=== PATIENT | female | born 1995 | race Caucasian/White ===

== ENCOUNTER 2018-06-25 17:05 | Day surgery (SDC) | payer SELFPAY ==
[2018-06-25 17:43] LABS: BILIRUBIN,URINE NEGATIVE (NEGATIVE); GLUCOSE, URINE (UA) NEGATIVE (NEGATIVE); KETONES,URINE (UA) NEGATIVE (NEGATIVE); LEUKOCYTE ESTERASE, URINE NEGATIVE (NEGATIVE); NITRITE,URINE NEGATIVE (NEGATIVE); OCCULT BLOOD,URINE SMALL (NEGATIVE); PROTEIN,URINE TRACE mg/dL (NEGATIVE); UROBILINOGEN,URINE 0.2 (NORMAL) E.U./dL (NORMAL)
[2018-06-25 17:44] LABS: CLARITY,URINE CLEAR (CLEAR)
[2018-06-25 17:45] LABS: HCG UR QUAL NEGATIVE
[2018-06-25 17:55] LABS: BACTERIA,URINE Rare /HPF (None Seen); RBC,URINE 0-5 /HPF (0-5); SQUAMOUS EPITHELIAL CELL,UR MOD Squamous (<= Few)
--- NOTE | 2018-06-25 17:57 | ED Physician Documentation ---
PD HPI ABD PAIN - Stated complaint Stated Complaint: AB PX/FEVER - Chief complaint Chief Complaint: Abd Pain - History obtained from History obtained from: Patient - History of Present Illness Timing - onset: Other (4 days progressive pain from the epigastrium moving to the RLQ. Hurts to move. Decreased PO intake. Has been nauseous. Nexplanon in place.) Review of Systems Ten Systems: 10 systems reviewed and negative Constitutional: reports: Chills, Fatigue GI: reports: Abdominal Pain, Nausea. denies: Vomiting, Constipation, Diarrhea : denies: Dysuria, Frequency PD PAST MEDICAL HISTORY - Past Medical History Past Medical History: No Cardiovascular: None Respiratory: None Neuro: None Endocrine/Autoimmune: None GI: None [employer]IENT SALES AND SERVICE OFFICER: None : None HEENT: None Psych: None Musculoskeletal: None Derm: None - Past Surgical History Past Surgical History: No - Present Medications Home Medications: Ambulatory Orders Medication Instructions Recorded Confirmed Etonogestrel [Nexplanon] 68 mg SQ DAILY 06/25/18 06/25/18 - Allergies Allergies/Adverse Reactions: Allergies Allergy/AdvReac Type Severity Reaction Status Date / Time codeine Allergy Intermediate Hives Verified 06/25/18 17:14 Penicillins Allergy Intermediate Hives Verified 06/25/18 17:14 Sulfa (Sulfonamide Allergy Intermediate Hives Verified 06/25/18 17:14 Antibiotics) tramadol Allergy Intermediate Hives Verified 06/25/18 17:14 acetaminophen [From Vicodin] AdvReac Intermediate Hives Verified 06/25/18 17:14 hydrocodone bitartrate * AdvReac Intermediate Hives Verified 06/25/18 17:14 [From Vicodin] - Social History Does the pt smoke?: No Smoking Status: Never smoker Does the pt drink ETOH?: Yes Does the pt have substance abuse?: No - Family History Family history: reports: Non contributory - Immunizations Immunizations are current?: Yes - POLST Patient has POLST: No PD ED PE NORMAL - Vitals Vital signs reviewed: Yes - General General: Alert and oriented X 3, No acute distress - HEENT HEENT: PERRL, EOMI - Neck Neck: Supple, no meningeal sign, No bony TTP - Cardiac Cardiac: RRR, No murmur - Abdomen Abdomen: Normal bowel sounds, Soft, Other (TTP RLQ) - Back Back: No CVA TTP, No spinal TTP - Derm Derm: Normal color, Warm and dry - Extremities Extremities: No edema, No calf tenderness / cord - Neuro Neuro: Alert and oriented X 3, Normal speech Results - Vitals Vitals: Vital Signs - 24 hr 06/25/18 06/25/18 17:12 19:14 Temperature 37.4 C 37.5 C Heart Rate 125 H 99 Respiratory 18 18 Rate Blood Pressure 104/61 110/63 O2 Saturation 99 100 Oxygen O2 Source Room air - Labs Labs: Laboratory Tests 06/25/18 06/25/18 06/25/18 17:35 18:00 18:00 WBC 10.5 RBC 4.94 Hgb 14.4 Hct 42.6 MCV 86.4 MCH 29.2 MCHC 33.8 RDW 13.6 Plt Count 267 MPV 8.7 Neut # (Auto) 7.9 H Lymph # (Auto) 1.5 Lynn # (Auto) 0.9 Eos # (Auto) 0.1 Baso # (Auto) 0.0 Absolute Nucleated RBC 0.00 Nucleated RBC % 0.0 Sodium 136 Potassium 3.2 L Chloride 98 L Carbon Dioxide 26 Anion Gap 12.0 BUN 11 Creatinine 0.7 Estimated GFR (MDRD) 106 Glucose 103 H Calcium 9.0 Total Bilirubin 0.8 AST 19 ALT 16 Alkaline Phosphatase 64 Total Protein 8.0 Albumin 4.4 Globulin 3.6 Albumin/Globulin Ratio 1.2 Lipase 23 Urine Color YELLOW Urine Clarity CLEAR Urine pH 8.0 H Ur Specific Mach[place] 1.020 Urine Protein TRACE Urine Glucose (UA) NEGATIVE Urine Ketones NEGATIVE Urine Occult Blood SMALL H Urine Nitrite NEGATIVE Urine Bilirubin NEGATIVE Urine Urobilinogen 0.2 (NORMAL) Ur Leukocyte Esterase NEGATIVE Urine RBC 0-5 Urine WBC 0-3 Ur Squamous Epith Cells MOD Squamous H Urine Bacteria Rare Ur Microscopic Review INDICATED Urine Culture Comments NOT INDICATED Urine HCG, Qual NEGATIVE - Rads (name of study) CTAP Radiology: EMP read contemporaneously (Acute appendicitis with potential perforation and pelvic free fluid) PD MEDICAL DECISION MAKING - ED course ED course: 23-year-old woman presents having pretty much read the book on appendicitis confirmed by CT. Spoke with Dr. Rizvi who will take her to the OR. We spoke around 8:15 PM. Allergies reviewed and she was administered Cipro and Flagyl IV. Departure - Departure Disposition: ED Transfer to [facility] Clinical Impression: Appendicitis Qualifiers: Appendicitis type: acute appendicitis Acute appendicitis type: with localized peritonitis Appendicitis gangrene presence: without gangrene Appendicitis perforation presence: with perforation Appendicitis abscess presence: without abscess Qualified Code(s): K35.32 - Acute appendicitis with perforation and localized peritonitis, without abscess Condition: Serious Forms: Activity restrictions
[2018-06-25] MEDS ORDERED: ONDANSETRON 4 MG/2 ML VIAL IVP STA (17:58)
[2018-06-25] MEDS ORDERED: SODIUM CHLORIDE 0.9% 1,000 ML IV ONE (17:58)
[2018-06-25] MEDS ORDERED: IOVERSOL 320 100 ML VIAL IVP ONE ×2 (18:07→20:11)
[2018-06-25] MEDS ORDERED: fentaNYL 100 MCG/2 ML VIAL IVP STA ×2 (18:09→19:56)
[2018-06-25 18:12] LABS: BASOPHILS % (AUTO) 0.4 %; EOSINOPHILS # (AUTO) 0.1 10^3/uL (0.0-0.7); EOSINOPHILS % (AUTO) 0.9 %; HGB - HEMOGLOBIN 14.4 g/dL (12.0-16.0); LYMPHOCYTES # (AUTO) 1.5 10^3/uL (1.5-3.5); LYMPHOCYTES % (AUTO) 14.5 %; MEAN CORPUSCULAR HEMOGLOBIN 29.2 pg (27.0-31.0); MEAN CORPUSCULAR HGB CONC 33.8 g/dL (32.0-36.0); MEAN CORPUSCULAR VOLUME 86.4 fL (81.0-99.0); MEAN PLATELET VOLUME 8.7 fL (7.9-10.8); MONOCYTES # (AUTO) 0.9 10^3/uL (0.0-1.0); MONOCYTES % (AUTO) 8.8 %; NEUTROPHILS # (AUTO) 7.9 10^3/uL (1.5-6.6); NEUTROPHILS % (AUTO) 75.4 %; PLT - PLATELET COUNT 267 10^3/uL (130-450); RED BLOOD COUNT 4.94 10^6/uL (4.20-5.40); RED CELL DISTRIBUTION WIDTH 13.6 % (12.0-15.0); WHITE BLOOD COUNT 10.5 x10^3/uL (4.8-10.8)
[2018-06-25 18:25] LABS: ALBUMIN 4.4 g/dL (3.2-5.5); ALBUMIN/GLOBULIN RATIO 1.2 (1.0-2.2); BILIRUBIN,TOTAL 0.8 mg/dL (0.2-1.0); CREATININE 0.7 mg/dL (0.4-1.0)
--- NOTE | 2018-06-25 20:07 | CT Report ---
Reason: IV only, RLQ pain Procedure Date: 06/25/2018 Accession Number: [id number] / [id number] Procedure: CT - Abdomen/Pelvis W CPT Code: FULL RESULT: EXAM: CT ABDOMEN AND PELVIS EXAM DATE: 06/25/2018 07:46 PM. CLINICAL HISTORY: IV only, RLQ pain. COMPARISONS: None. TECHNIQUE: Routine helical CT imaging was performed through the abdomen and pelvis. IV contrast: CE. Enteric contrast: No. Reconstructions: Coronal and sagittal. In accordance with CT protocol optimization, one or more of the following dose reduction techniques were utilized for this exam: automated exposure control, adjustment of mA and/or KV based on patient size, or use of iterative reconstructive technique. FINDINGS: Lung Bases: Unremarkable. Liver: Normal. No masses. Gallbladder/Bile Ducts: Unremarkable. Spleen: Normal. Pancreas: Normal. Adrenal Glands: Normal. Kidneys: Normal. No masses or hydronephrosis. Peritoneal Cavity/Bowel: Stomach and small bowel demonstrate no acute abnormalities. No acute colonic abnormalities. The appendix is dilated and thick-walled. It measures up to 1.3 cm in diameter. It is best seen on coronal imaging. The proximal appendix is poorly defined. There is periappendiceal fat stranding and fluid. There is small to moderate amount of free fluid within the right pelvis. There are subcentimeter mesenteric lymph nodes. Pelvic Organs: Uterus and adnexa demonstrate no significant abnormalities. The urinary bladder is decompressed. Vasculature: No acute vascular abnormalities are seen. Bones: No significant abnormality. Other: None. IMPRESSION: The appendix is dilated up to 1.3 cm. It is fluid-filled and demonstrates mural irregularity. The proximal appendix is poorly defined. There is periappendiceal fat stranding which extends from the right lower quadrant through the right pelvis. There is small to moderate volume fluid within the pelvis. Findings are consistent with acute appendicitis, with possible appendiceal perforation. There is no definite evidence of drainable periappendiceal abscess. RADIA
[2018-06-25] MEDS ORDERED: metroNIDAZOLE 500 MG/100 ML 500 MG/100 ML BAG IV ONE (20:18)
[2018-06-25] MEDS ORDERED: CIPROFLOXACIN 400 MG/200 ML 200 ML IV ONE (20:18)
--- NOTE | 2018-06-25 20:53 | ANESTHESIA ---
Pre-Anesthesia VS, & Labs - Diagnosis acute appendicitis - Procedure Lap appy Vital Signs: Temp Pulse Resp BP Pulse Ox 37.5 C 99 18 110/63 100 06/25/18 19:14 06/25/18 19:14 06/25/18 19:14 06/25/18 19:14 06/25/18 19:14 Height 5 ft 6 in Weight (kg) 72.575 kg Body Mass Index 25.8 - NPO Last Food Intake: 1600 - Is Patient ?: No - Lab Results Current Lab Results: Laboratory Tests 06/25/18 18:00: Sodium 136, Potassium 3.2 L, Chloride 98 L, Carbon Dioxide 26, Anion Gap 12.0, BUN 11, Creatinine 0.7, Estimated GFR (MDRD) 106, Glucose 103 H, Calcium 9.0, Total Bilirubin 0.8, AST 19, ALT 16, Alkaline Phosphatase 64, Total Protein 8.0, Albumin 4.4, Globulin 3.6, Albumin/Globulin Ratio 1.2, Lipase 23 06/25/18 18:00: WBC 10.5, RBC 4.94, Hgb 14.4, Hct 42.6, MCV 86.4, MCH 29.2, MCHC 33.8, RDW 13.6, Plt Count 267, MPV 8.7, Neut # (Auto) 7.9 H, Lymph # (Auto) 1.5, [place] # (Auto) 0.9, Eos # (Auto) 0.1, Baso # (Auto) 0.0, Absolute Nucleated RBC 0.00, Nucleated RBC % 0.0 Fish Bones: 06/25/18 18:00 06/25/18 18:00 Home Medications and Allergies Home Medications: Ambulatory Orders Etonogestrel [Nexplanon] 68 mg SQ DAILY 06/25/18 Active Medications Ciprofloxacin (Cipro 400 Mg/200 Ml) 200 mls @ 200 mls/hr IV ONCE ONE Stop: 06/25/18 21:17 Last Admin: 06/25/18 20:45 Dose: 200 mls/hr Metronidazole (Flagyl 500 Mg/100 Ml) 500 mg in 100 mls @ 100 mls/hr IV ONCE ONE Stop: 06/25/18 21:17 Etonogestrel [Nexplanon] 68 mg SQ DAILY 06/25/18 Allergies/Adverse Reactions: Allergies Allergy/AdvReac Type Severity Reaction Status Date / Time codeine Allergy Intermediate Hives Verified 06/25/18 17:14 Penicillins Allergy Intermediate Hives Verified 06/25/18 17:14 Sulfa (Sulfonamide Allergy Intermediate Hives Verified 06/25/18 17:14 Antibiotics) tramadol Allergy Intermediate Hives Verified 06/25/18 17:14 acetaminophen [From Vicodin] AdvReac Intermediate Hives Verified 06/25/18 17:14 hydrocodone bitartrate * AdvReac Intermediate Hives Verified 06/25/18 17:14 [From Vicodin] Anes History & Medical History - Anesthetic History Family history of Anesthesia Complications: Denies Family history of Malignant Hyperthermia: Denies - Medical History Cardiovascular: reports: None Pulmonary: reports: None Gastrointestinal: reports: None Urinary: reports: None Neuro: reports: Seizure disorder (as a young teen, now resolved) Musculoskeletal: reports: None Endocrine/Autoimmune: reports: None Blood Disorders: reports: None Skin: reports: None Smoking Status: Never smoker Psychosocial: reports: Depression, Anxiety Exam General: Alert, Oriented x3, Cooperative, No acute distress Dental: WNL Mouth Openin Fingerbreadth Neck Mobility: Normal Mallampati classification: II Thyromental Distance: 4-6 cm Respiratory: Lungs clear, Normal breath sounds, No respiratory distress, No accessory muscle use Cardiovascular: Regular rate, Normal S1, Normal S2, No murmurs Mental/Cognitive Status: Alert/Oriented X3, Normal for patient Plan Anesthesia Type: General Consent for Procedure(s) Verified and Reviewed: Yes Code Status: Attempt Resuscitation ASA classification: 1-Healthy patient Is this case an emergency?: Yes
[2018-06-25] MEDS ORDERED: BUPIVACAINE 0.5%-EPI 1:200000 PF 30 ML VIAL ONE (20:56)
[2018-06-25] MEDS ORDERED: LACTATED RINGERS 1,000 ML IV ONE ×2 (21:58→22:27)
[2018-06-25] MEDS ORDERED: BUPIVACAINE 0.5%-EPI 1:200000 PF 30 ML VIAL SUBQ ONE ×2 (21:58)
[2018-06-25] MEDS ORDERED: ONDANSETRON 4 MG/2 ML VIAL IVP ONE (22:22)
[2018-06-25] MEDS ORDERED: SUCCINYLCHOLINE 200 MG/10 ML VIAL IVP ONE (22:22)
[2018-06-25] MEDS ORDERED: ROCURONIUM 50 MG/5 ML VIAL IVP ONE (22:22)
[2018-06-25] MEDS ORDERED: NEOSTIGMINE 1 MG/1 ML 10 ML MDV IVP ONE (22:22)
[2018-06-25] MEDS ORDERED: KETOROLAC 30 MG/ML VIAL IVP ONE (22:22)
[2018-06-25] MEDS ORDERED: fentaNYL 250 MCG/5 ML VIAL IVP ONE (22:22)
[2018-06-25] MEDS ORDERED: PROPOFOL 200 MG/20 ML VIAL IVP ONE (22:22)
[2018-06-25] MEDS ORDERED: ACETAMINOPHEN 1,000 MG/100 ML 100 ML IV ONE (22:22)
[2018-06-25] MEDS ORDERED: DEXAMETHASONE 4 MG/ML VIAL IVP ONE (22:22)
[2018-06-25] MEDS ORDERED: MIDAZOLAM 2 MG/2 ML VIAL IVP ONE (22:22)
[2018-06-25] MEDS ORDERED: GLYCOPYRROLATE 1 MG/5 ML VIAL IVP ONE (22:22)
[2018-06-26 02:27] VITALS: BP 103/51
--- NOTE | 2018-06-26 06:08 | OPERATIVE REPORT ---
DATE OF SERVICE: 06/25/2018 Physician: Edd Rizvi MD PREOPERATIVE DIAGNOSIS: Acute appendicitis. POSTOPERATIVE DIAGNOSIS: Acute appendicitis. PROCEDURE PERFORMED: Laparoscopic appendectomy. SURGEON: Edd Rizvi MD INDICATIONS FOR PROCEDURE: The patient is a 23-year-old woman who presented to the ER complaining of 3 days of right lower quadrant pain. She was found on workup to have acute appendicitis. PROCEDURE IN DETAIL: The risks and benefits were explained to the patient, she agreed to the procedu re. She was taken to the operating room and given general anesthesia and intubated. The abdomen was prepped and draped. A timeout was performed. Everyone agreed to the procedure. We began making a 12 mm supraumbilical incision, carried this down into the peritoneal cavity, inserted a Mirna trocar and secured it in place. We insufflated the abdomen to 15 mmHg. We inserted 2 more 5 mm trocars, 1 just below the umbilicus and 1 just above the pubic symphysis. These were inserted under vision of the camera. The appendix was identified, it was found to be severely inflamed, however, there is no evidence of necrosis, gangrene, or perforation. There was a small amount of free fluid in the pelvis , which was suctioned out and found to just be edema with no sign of infection in the fluid. The ernestine endix had adherent omentum, which peeled off easily. A window was then made at the base of the appen chrystal between the appendiceal body and the mesoappendix. A blue HERON stapler was inserted and used to t ransect the appendiceal body at its base. A white load was then used to transect the mesoappendix. The appendix was placed in an EndoCatch bag and sent to Pathology. The staple lines were inspected a nd found to be free of abnormality. All 3 trocars were removed under vision of the camera. The fasc ial umbilical port site was closed using 0 Vicryl stitch, and the skin of all 3 incisions were closed using 4-0 Monocryl and Dermabond. This terminated the procedure. The patient tolerated it well. S he was extubated in the operating and taken to the recovery room in stable condition. COUNTS: Instrument and lap counts were correct. ESTIMATED BLOOD LOSS: 10 mL. SPECIMEN: Appendix. COMPLICATIONS: None. PLAN: For the patient to go home later today or tomorrow morning. TD: 06/25/2018 22:36
== END 2018-06-26 02:45 | disposition home or self-care (01) ==
LOC: ED 17:05 → SDS 21:00 → OBS 22:54 → SDS 06-26 02:45
PROVIDERS: ATTEND Surgery
PROC: 0DTJ4ZZ Resection of Appendix, Percutaneous Endoscopic Approach (ICD-10-PCS; principal; 2018-06-25 21:00)
DX: K35.80 Unspecified acute appendicitis (principal)
CPT/HCPCS: 36415; 44970; 74177; 80053; 81001; 81025; 83690; 85025; 96361; 96374; 96375; 96376; 99283; 99284; J0131; J0330; J3010; J7120; Q9967; 81003; 87086